=== PATIENT | male | born 1970 | race Caucasian/White ===

== ENCOUNTER → 2016-11-18 | Outpatient (CLI) | payer OTHER | LOC: KOH-I 12:00 | DX: M25.561 Pain in right knee (principal) | CPT/HCPCS: 73562 ==

== ENCOUNTER 2022-04-10 00:56 | Emergency (ER) | payer OTHER ==
[2022-04-10 01:23] LABS: HEMOGLOBIN 13.5 gm/dl (14.0-17.5); RED BLOOD COUNT 4.34 M/UL (4.20-5.50)
[2022-04-10 01:44] LABS: BUN/CREATININE RATIO 13 (0-10)
== END 2022-04-10 05:40 | disposition home or self-care (01) ==
LOC: ER1 00:56
PROVIDERS: Family Medicine
DX: R56.9 Unspecified convulsions (principal); F13.20 Sedative, hypnotic or anxiolytic dependence, uncomplicated; F17.200 Nicotine dependence, unspecified, uncomplicated
CPT/HCPCS: 70450; 71045; 80053; 80307; 81001; 82550; 82553; 83605; 83690; 83735; 84484; 85025; 93005; 96374; 99285; G0480; J2060